=== PATIENT | female | born 1970 | race Caucasian/White ===

== ENCOUNTER → 2023-04-30 15:48 | Outpatient (REF) | payer BC, SELFPAY | LOC: HWRCS 15:48 | PROVIDERS: ATTENDING PHYSICIAN Internal Medicine; FAMILY PHYSICIAN Family Medicine | DX: R00.1 Bradycardia, unspecified (principal); M79.602 Pain in left arm; E78.00 Pure hypercholesterolemia, unspecified | CPT/HCPCS: 93306 ==

== ENCOUNTER → 2023-05-05 14:15 | Outpatient (REF) | payer BC, SELFPAY | LOC: RCS 14:15 | PROVIDERS: ATTENDING PHYSICIAN Internal Medicine; FAMILY PHYSICIAN Family Medicine | DX: R00.1 Bradycardia, unspecified (principal); M79.602 Pain in left arm; E78.00 Pure hypercholesterolemia, unspecified | CPT/HCPCS: 93017 ==

== ENCOUNTER → 2023-05-26 14:53 | Outpatient (REF) | payer BC, SELFPAY | LOC: DHCBC HW 14:53 | PROVIDERS: ATTENDING PHYSICIAN Internal Medicine; FAMILY PHYSICIAN Family Medicine | DX: I31.39 Other pericardial effusion (noninflammatory) (principal) | CPT/HCPCS: 93308 ==

== ENCOUNTER → 2023-11-19 09:48 | Outpatient (REF) | payer BC, SELFPAY | LOC: RST 09:48 | PROVIDERS: ATTENDING PHYSICIAN Internal Medicine; FAMILY PHYSICIAN Family Medicine | DX: R09.A2 Foreign body sensation, throat (principal) | CPT/HCPCS: 74230; 92611 ==

== ENCOUNTER → 2023-11-26 14:01 | Outpatient (REF) | payer BC, SELFPAY | LOC: HWRCS 14:01 | PROVIDERS: ATTENDING PHYSICIAN Internal Medicine; FAMILY PHYSICIAN Family Medicine | DX: I31.39 Other pericardial effusion (noninflammatory) (principal) | CPT/HCPCS: 93306 ==

== ENCOUNTER → 2025-01-19 13:57 | Outpatient (REF) | payer BC, SELFPAY | LOC: HWRCS 13:57 | PROVIDERS: ATTENDING PHYSICIAN Nurse Practitioner; FAMILY PHYSICIAN Family Medicine | DX: I31.39 Other pericardial effusion (noninflammatory) (principal) | CPT/HCPCS: 93306 ==